=== PATIENT | female | born 1965 | race Two or more races ===

== ENCOUNTER 2024-12-25 13:40 | Emergency (ER) | payer OTHER, BC, MEDICAID, SELFPAY ==
[2024-12-25 13:49] VITALS: BP 136/85; PULSE 84; RESP 18; TEMP 36.7; O2SAT 97; BMI 30.4
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
== END 2024-12-25 17:59 | disposition home or self-care (01) ==
PROVIDERS: Emergency Provider Emergency Medicine; PCP Family Medicine
DX: S22.42XA Multiple fractures of ribs, left side, initial encounter for closed fracture (principal); V89.9XXA Person injured in unspecified vehicle accident, initial encounter
CPT/HCPCS: 71101; 99283